=== PATIENT | female | born 1945 | race Caucasian/White ===

== ENCOUNTER 2019-01-04 02:59 | Emergency (ER) | payer MEDICARE, MEDICAID ==
[~2019-01-04] VITALS: Ht 160 cm; Wt 53.0 kg
[2019-01-04] MEDS ORDERED: DOXYCYCLINE 100MG CAPSULE PO STA (03:14)
[2019-01-04] MEDS ORDERED: cephalexin 250mg capsule PO ONE (03:15)
[2019-01-04 03:46] VITALS: BP 185/101
[2019-01-04 03:47] LABS: BASOPHILS % (AUTO) 0.6 % (0-1); EOSINOPHILS # (AUTO) 0.1 X10'3 (0-0.9); EOSINOPHILS % (AUTO) 1.1 % (0-6); HEMATOCRIT 41.5 % (35.0-45.0); HEMOGLOBIN 13.8 g/dl (12.0-16.0); LYMPHOCYTES # (AUTO) 1.4 X10'3 (1.1-4.8); LYMPHOCYTES % (AUTO) 21.3 % (21-51); MEAN CORPUSCULAR HEMOGLOBIN 29.6 PG (27.0-31.0); MEAN CORPUSCULAR HGB CONC 33.2 g/dL (33.0-36.5); MEAN CORPUSCULAR VOLUME 89.2 FL (78-98); MEAN PLATELET VOLUME 7.7 FL (7.4-10.4); MONOCYTES # (AUTO) 0.5 X10'3 (0-0.9); NEUTROPHILS # (AUTO) 4.6 X10'3 (1.8-7.7); PLATELET COUNT 272 X10'3 (140-440); RED BLOOD COUNT 4.64 X10'6 (4.20-5.60); RED CELL DISTRIBUTION WIDTH 14.2 % (11.5-14.5); WHITE BLOOD COUNT 6.6 X10'3 (4.5-11.0)
[2019-01-04 03:59] LABS: ALANINE AMINOTRANSFERASE 20 U/L (12-78); ALBUMIN 3.4 G/DL (3.4-5.0); ALBUMIN/GLOBULIN RATIO 0.8 (1.1-1.5); ALKALINE PHOSPHATASE 117 IU/L (46-116); ANION GAP 10 (8-16); ASPARTATE AMINO TRANSFERASE 13 U/L (10-37); BILIRUBIN,TOTAL 0.3 MG/DL (0.1-1.0); BLOOD UREA NITROGEN 18 MG/DL (7-18); BUN/CREATININE RATIO 19.8 (6.6-38.0); CALCIUM 8.6 MG/DL (8.5-10.1); CHLORIDE 104 MMOL/L (99-107); CREATININE 0.91 MG/DL (0.40-0.90); GLUCOSE 207 MG/DL (70-104); POTASSIUM 3.2 MMOL/L (3.5-5.1); SODIUM 141 MMOL/L (135-145); TOTAL CARBON DIOXIDE 27.4 MMOL/L (24-32); TOTAL PROTEIN 7.9 G/DL (6.4-8.2); eGFR 61 ML/MIN
[2019-01-04] MEDS ORDERED: DOXY100C43 PO (04:11)
[2019-01-04] MEDS ORDERED: CEPH500C5 PO (04:11)
== END 2019-01-04 04:22 | disposition home or self-care (01) ==
LOC: ER 02:59
DX: E11.621 Type 2 diabetes mellitus with foot ulcer (principal); L97.519 Non-pressure chronic ulcer of other part of right foot with unspecified severity; J45.909 Unspecified asthma, uncomplicated; M79.7 Fibromyalgia; Z88.2 Allergy status to sulfonamides; Z79.2 Long term (current) use of antibiotics; Z79.899 Other long term (current) drug therapy; Z90.49 Acquired absence of other specified parts of digestive tract; Z98.890 Other specified postprocedural states; Z86.79 Personal history of other diseases of the circulatory system
CPT/HCPCS: 36415; 73630; 80053; 85025; 99284

== ENCOUNTER 2019-02-09 10:30 | Day surgery (SDC) | payer MEDICARE, MEDICAID ==
[~2019-02-09 10:30] MED LIST: CEPH500C5 PO
[2019-02-11] MEDS ORDERED: LIDOcaine 2% 5ml jelly ONE (11:03)
[2019-02-22] MEDS ORDERED: METF-438 PO (15:12)
[2019-02-22] MEDS ORDERED: OMEP-50 PO (15:12)
[2019-02-22] MEDS ORDERED: FURO40TA4 PO (17:12)
[2019-02-22] MEDS ORDERED: FERR325T28 PO (17:30)
[2019-02-22] MEDS ORDERED: CARB15DR EACHEYE (17:30)
[2019-02-22] MEDS ORDERED: ATR0.5NEB NEB (17:30)
[2019-02-22] MEDS ORDERED: TRAM50TA2 PO (17:30)
[2019-02-22] MEDS ORDERED: FLUT1DIS4 INH (17:30)
[2019-02-22] MEDS ORDERED: ASPI-1265 PO (17:30)
[2019-02-22] MEDS ORDERED: PROC5TAB10 PO (17:30)
[2019-02-22] MEDS ORDERED: LORA-269 PO (17:30)
[2019-02-22] MEDS ORDERED: RANI150T8 PO (17:30)
[2019-02-22] MEDS ORDERED: POTA10CA44 PO (17:30)
[2019-02-22] MEDS ORDERED: LEVA15HF4 INH (17:30)
[2019-02-22] MEDS ORDERED: VERA120T9 PO (17:30)
[2019-02-25] MEDS ORDERED: SERT50TA10 PO (11:04)
[2019-02-25] MEDS ORDERED: POTA10CA44 PO (11:04)
[2019-02-25] MEDS ORDERED: HCTZ25T PO (11:07)
== END 2019-02-11 | disposition home or self-care (01) ==
LOC: CANPRESDC → WOUND CARE 02-11 10:21
PROVIDERS: ATTEND Surgery
DX: E11.621 Type 2 diabetes mellitus with foot ulcer (principal); L97.512 Non-pressure chronic ulcer of other part of right foot with fat layer exposed; E11.40 Type 2 diabetes mellitus with diabetic neuropathy, unspecified; E11.65 Type 2 diabetes mellitus with hyperglycemia; E11.36 Type 2 diabetes mellitus with diabetic cataract; E11.39 Type 2 diabetes mellitus with other diabetic ophthalmic complication; H42 Glaucoma in diseases classified elsewhere; J45.909 Unspecified asthma, uncomplicated; I11.0 Hypertensive heart disease with heart failure; I50.9 Heart failure, unspecified; K50.90 Crohn's disease, unspecified, without complications; G89.29 Other chronic pain; Z79.899 Other long term (current) drug therapy; Z98.890 Other specified postprocedural states; Z86.73 Personal history of transient ischemic attack (TIA), and cerebral infarction without residual deficits; Z90.710 Acquired absence of both cervix and uterus; Z79.82 Long term (current) use of aspirin
CPT/HCPCS: 11042; 36416; 82948; A6209; A4663; A6446